=== PATIENT | male | born 1965 | race Caucasian/White ===

== ENCOUNTER 2018-02-25 09:21 | Inpatient (IN) ==
--- NOTE | 2018-02-25 10:06 | History & Physical Report ---
<Candy Medrano - Last Filed: 02/25/18 10:02> Date of Encounter: 02/25/18 Time of Encounter: 09:30 24 Hour HP Update - Instructions Instructions: If the History and Physical is less than 30 days old and was completed prior to A.M. admission and or procedure and has NOT been updated on calendar day of procedure please complete this update prior to performing procedure. - Update Patient reports changes in Medical Condition: No Changes in examination, assessment, or condition: No Changes in Medication: No Preop tests/diagnostics Reviewed: Yes - Attending Attestation Please refer to full H&P by Dr. Lonny Hale on 01/25/18. Direct admission for Rythmol initiation d/t symptomatic atrial fibrillation. Has been anticoagulated on Eliquis 5 mg BID; denies missed doses in the past 30 + days. Baseline ECG demonstrates atrial fibrillation with controlled rate, 74 BPM. QRS 97 ms, QT/QTc 388,416 ms. Obtain baseline CMP, CBC. Daily ECG's. Anticipate starting Rythmol 150 mg every 8 hours. Will need inpatient monitoring for at least 5 doses. If remains in Afib after 5th dose, will plan for DCCV prior to discharge. Patient agreeable. Mr. Mejias will be discussed and reviewed with Dr. Lonny Hale, changes to be made accordingly. <Lonny Hale - Last Filed: 02/26/18 15:46> Date of Encounter: 02/26/18 - Attending Attestation I have personally performed a face to face evaluation on this patient. I have reviewed and agree with the care plan. History and Exam by me shows:
[2018-02-25] MEDS ORDERED: Naloxone 0.4 MG/ML INJ IVP PRN (10:07)
[2018-02-25 10:25] LABS: Basophils # 0.1 K/mcL (0.0-0.2); Basophils % 0.7 %; Eosinophils # 0.3 K/mcL (0.0-0.6); Eosinophils % 3.7 %; Hematocrit 43.3 % (37.5-50.1); Hemoglobin 14.5 g/dL (12.9-16.9); Immature Granulocytes % 0.3 % (0-4); Lymphocytes # 1.8 K/mcL (0.6-4.6); Lymphocytes % 20.9 %; Mean Corpuscular HGB Conc 33.5 g/dL (31.6-35.5); Mean Corpuscular Hemoglobin 30.2 pg (28.0-33.3); Mean Corpuscular Volume 90.2 fL (83.0-100.0); Mean Platelet Volume 10.4 fL (9.4-12.4); Monocytes # 0.9 K/mcL (0.0-1.3); Monocytes % 10.4 %; Neutrophils # 5.5 K/mcL (1.6-8.9); Platelet Count 230 K/mcL (140-400); Red Cell Distribution Width 12.7 % (11.5-14.5)
[2018-02-25 10:46] LABS: Alanine Aminotransferase 23 Units/L (7-52); Albumin/Globulin Ratio 1.5 (1.1-2.2); Alkaline Phosphatase 86 Units/L (34-104); Aspartate Amino Transferase 18 Units/L (13-39); BUN/Creatinine Ratio 27 (6-26); Bilirubin,Total 0.7 mg/dL (0.3-1.0); Blood Urea Nitrogen 22 mg/dL (6-20); Calcium 8.7 mg/dL (8.6-10.3); Chloride 105 mEq/L (98-107); Globulin 2.6 g/dL (2.4-3.5); Glucose 100 mg/dL (70-105); Osmolality,Calculated 291 (280-300); Potassium 4.1 mEq/L (3.5-5.1); Sodium 139 mEq/L (136-145); Total Protein 6.6 g/dL (6.4-8.9); eGFR For African Americans > 60 (> 60); eGFR For Non-African Americans > 60 (> 60)
[2018-02-25 11:07] LABS: Carbon Dioxide 26 mEq/L (23-29)
[2018-02-25] MEDS: Diltiazem CD (24hr) 120 MG CAPSULE PO SCH (13:55)
[2018-02-25] MEDS: (Umeclidinium Bromide [Incruse Ellipta] 62.5 MCG) IH SCH (13:55)
[2018-02-25] MEDS: Aspirin Enteric Coated 81 MG Tablet PO SCH (13:55)
[2018-02-25] MEDS: Loratadine 10 MG TABLET PO SCH (13:55)
[2018-02-25] MEDS: Fluticasone Propionate Nasal 50 MCG/SPRAY BOTTLE NS SCH (13:55)
[2018-02-25] MEDS: Apixaban 5 MG TABLET PO SCH (20:13)
[2018-02-25] MEDS ORDERED: Acetaminophen 325 MG TABLET PO PRN (21:53)
[2018-02-26] MEDS: Apixaban 5 MG TABLET PO SCH ×2 (08:46→21:55)
[2018-02-26] MEDS: Diltiazem CD (24hr) 120 MG CAPSULE PO SCH (08:46)
[2018-02-26] MEDS: Loratadine 10 MG TABLET PO SCH (08:46)
[2018-02-26] MEDS: Aspirin Enteric Coated 81 MG Tablet PO SCH (08:46)
--- NOTE | 2018-02-26 08:57 | Electrophysiology ProgressNote ---
Date of Encounter: 02/26/18 Time of Encounter: 09:00 Assessment and Plan (1) PAF (paroxysmal atrial fibrillation) Current Visit: Yes Status: Acute Per EP: Directly admitted for proximal atrial fibrillation and antiarrhythmic initiation. Patient is status post 3 doses of Rythmol 150 mg by mouth every 8 hours. 24 hour telemetry reviewed with average heart rate past 12 hours 70, currently remains A. fib in the 70s to 80s with longus cause 2.3 seconds. Remains on beta annelise and calcium channel annelise. Patient anticoagulated with Eliquis. Denies any missed doses the past 30 days and denies any active bleeding or blood loss. Plan for possible DC cardioversion tomorrow if appropriate. No MARYCARMEN warranted. Possible discharge tomorrow. All questions answered. Discussion w patient/family: The assessment and plan as outlined above was discussed with the patient who expressed understanding and agreement. All questions were answered. Thank you for involving us in the care of your patient. Please call with any questions. Subjective Principal diagnosis: Afib Interval history: Patient denies any concerns or complaints overnight. Denies any chest pain, short of breath, palpitations. Denies any bleeding concerns. Reports compliance with anticoagulation for at least the past 30 days. Objective Vital Signs, Last 4 Hours Temp Pulse Resp BP Pulse Ox 02/26/18 07:42 97.6 F 65 18 131/99 97 02/26/18 05:00 98.4 F 64 18 126/92 91 General: Conversant, No Apparent Distress HEENT: Atraumatic, Normocephaly, Mucus Membranes Moist Neck: No JVD, Normal carotid pulses Cardiac: Reg Rate and Rhythm, Normal S1 and S2, No Murmur Lungs: Normal Breath Sounds, No Wheeze, Rales, Rhonchi Neuro: Alert and responsive, No focal deficits noted Abdomen: Soft, Non-Tender Skin: No rashes noted on visualized skin Musculoskeletal: No Chest Wall Tenderness Extremities: No Clubbing, No Cyanosis, No Edema, Normal Pulses Results 02/25/18 10:01 02/25/18 10:01 Lab Results 02/25/18 02/25/18 10:01 10:01 WBC 8.6 Hgb 14.5 Hct 43.3 Plt Count 230 Sodium 139 Potassium 4.1 Chloride 105 Carbon Dioxide 26 BUN 22 H Creatinine 0.83 Glucose 100 Calcium 8.7 Total Bilirubin 0.7 AST 18 ALT 23 Alkaline Phosphatase 86 - EKG Interpretation EKG results cardiology: other (Telemetry reviewed with average heart rate past 12 hours 70, currently A. fib in the 70s to 80s with longest pasue 2.3 seconds) - VTE Reasons for not Prescribing Prophylaxis: Not indicated-Anticoagulated or INR therapeutic Consult Discharge Plan - Plan Referrals: Julius You MD [Primary Care Provider] -
[2018-02-26] MEDS: (Umeclidinium Bromide [Incruse Ellipta] 62.5 MCG) IH SCH ×2 (12:15→14:10)
[2018-02-26] MEDS: Fluticasone Propionate Nasal 50 MCG/SPRAY BOTTLE NS SCH (14:07)
[2018-02-27] MEDS: (Umeclidinium Bromide [Incruse Ellipta] 62.5 MCG) IH SCH (08:56)
[2018-02-27] MEDS: Aspirin Enteric Coated 81 MG Tablet PO SCH (08:56)
[2018-02-27] MEDS: Diltiazem CD (24hr) 120 MG CAPSULE PO SCH (08:56)
[2018-02-27] MEDS: Apixaban 5 MG TABLET PO SCH (08:56)
[2018-02-27] MEDS: Loratadine 10 MG TABLET PO SCH (08:56)
[2018-02-27] MEDS: Fluticasone Propionate Nasal 50 MCG/SPRAY BOTTLE NS SCH (09:00)
--- NOTE | 2018-02-27 10:41 | Event Note ---
Date of Encounter: 02/27/18 Time of Encounter: 10:39 - Cardiology Event Note S/P 6 Rythmol doses, remains in A-Fib. EKGs reviewed--QRS stable. Denies any missed doses of Eliquis in past 30 days. Proceed with DCCV today in attempt to restore SR. No MARYCARMEN warranted. If successful DCCV, anticipate d/c later today.
[2018-02-27] MEDS ORDERED: 0.9 % Sodium Chloride 500 ML IVC ONE (11:54)
[2018-02-27] MEDS: *HR* Midazolam HCl 5 MG/5 ML VIAL IVP PRN ×3 (13:05→13:15)
[2018-02-27] MEDS: *HR* FentaNYL (PF) 100 MCG/2 ML VIAL IVP PRN ×3 (13:05→13:15)
--- NOTE | 2018-02-27 13:54 | Discharge Summary ---
Orders not resulted at time of discharge: Pending orders 02/27/18 09:23 EV cardioversion Routine 02/28/18 06:00 ECG 12 lead ECG [ECG] AM 0600 Date of Encounter: 02/27/18 Time of Encounter: 13:51 - Discharge Diagnosis (1) PAF (paroxysmal atrial fibrillation) Priority: Primary Status: Acute - Hospital Course Hospital course: Mr. Mejias is a 52 year old male directly admitted for proximal atrial fibrillation and antiarrhythmic initiation. Patient is status post 6 doses of Rythmol 150 mg by mouth every 8 hours. Underwent successful DCCV today, currently sinus rhythm, HR 50s, 1st degree AV block. Will continue CCB, but will stop his BB. Patient anticoagulated with Eliquis. EKGs reviewed--QRS remains stable. Tentative D/C home ~5PM today after pt recovers from DCCV/ sedation. Will coordinate outpt follow-up in 2-3 weks. - Time Spent with Patient Total time spent providing and/or coordinating discharge services: Less than 30 minutes - Discharge Medications Prescriptions: Propafenone [Rhythmol] 150 mg PO 0600,1400,2200 #90 tablet Home Medications: Apixaban [Eliquis] 5 mg PO BID 08/17/17 [History] Aspirin [Lo-Dose Aspirin EC] 81 mg PO DAILY 08/17/17 [History] Atorvastatin [Lipitor] 40 mg PO HS 08/17/17 [History] Diltiazem CD (24hr) [Cardizem CD] 120 mg PO DAILY 08/17/17 [History] Escitalopram [Lexapro] 10 mg PO DAILY 08/17/17 [History] Fluticasone Propionate Nasal [Flonase] 1 spr NS DAILY 08/17/17 [History] Loratadine [Claritin] 10 mg PO DAILY 08/17/17 [History] Naproxen [Naprosyn] 500 mg PO BID 08/17/17 [History] Albuterol Sulfate [Ventolin Hfa] 18 gm IH QID PRN 02/25/18 [History] Aspirin/Acetaminophen/Caffeine [Excedrin Migraine Caplet] 2 each PO DAILY PRN [History] Umeclidinium [employer] [Incruse Ellipta] 62.5 mcg IH DAILY 02/25/18 [History] Propafenone [Rhythmol] 150 mg PO 0600,1400,2200 #90 tablet 02/27/18 [Rx] Allergies/Adverse Reactions: 3 Allergy/AdvReac Type Severity Reaction Status Date / Time Amoxicillin [From Augmentin] Allergy Itching Verified 02/25/18 10:42 clavulanic acid Allergy Itching Verified 02/25/18 10:42 [From Augmentin] Hydromorphone [From Dilaudid] Allergy Itching Verified 02/25/18 10:42 Date of admission: 02/25/18 09:21 Primary care physician: Julius You MD Discharging clinician: Agustin Davidson Anticipated date of discharge: 02/27/18 Physical Examination Vital Signs, Last 4 Hours Temp Pulse Resp BP Pulse Ox 02/27/18 12:33 97.7 F 68 12 138/93 95 02/27/18 11:43 97.4 F L 70 18 136/78 95 Vital Signs Temp Pulse Resp BP Pulse Ox 02/27/18 12:33 97.7 F 68 12 138/93 95 02/27/18 11:43 97.4 F L 70 18 136/78 95 02/27/18 07:20 97.4 F L 65 18 131/94 96 02/27/18 05:31 96.6 F L 65 18 132/97 97 02/26/18 21:50 97.7 F 66 20 134/90 93 02/26/18 19:59 93 02/26/18 15:49 97.6 F 62 18 116/84 93 02/26/18 14:04 72 120/54 Intake and Output 02/26/18 02/27/18 02/27/18 23:59 07:59 15:59 Intake Total 590 / 590 0 / 0 Output Total 800 / 800 750 / 750 400 / 400 Balance -210 / -210 -750 / -750 -198 / -198 Intake: IV Fluids 0.9 % Sodium Chloride 500 ML @ 150 mls/hr IVC .Q3H20M ONE Rx#: [id number] Oral 590 / 590 0 / 0 0 / 0 Output: Urine 800 / 800 750 / 750 400 / 400 Other: Meal Dinner Breakfast Percent of Meal Consumed 100% 0% Weight 162.6 kg 358 kg Patient Weight 02/27/18 23:59 Weight 358 kg General: Conversant, No Apparent Distress HEENT: Atraumatic, Normocephaly, Mucus Membranes Moist Neck: No JVD, Normal carotid pulses Cardiac: Reg Rate and Rhythm, Normal S1 and S2, No Murmur Lungs: Normal Breath Sounds, No Wheeze, Rales, Rhonchi Neuro: Alert and responsive, No focal deficits noted Abdomen: Soft, Non-Tender Skin: No rashes noted on visualized skin Musculoskeletal: No Chest Wall Tenderness Extremities: No Clubbing, No Cyanosis, No Edema, Normal Pulses - Patient Status Disposition: Home, Self-Care Condition: Fair Functional capacity at discharge: independent ambulation Overall status at discharge: patient is progressing back to baseline - Discharge Instructions Follow Up With: Julius You MD [Primary Care Provider] - - Diet and Activity Activity: increase activity as tolerated Diet: low fat, low cholesterol - VTE Reasons for not Prescribing Prophylaxis: Not indicated-Anticoagulated or INR therapeutic
[2018-02-27 15:36] VITALS: BP 135/89
--- NOTE | 2018-02-28 16:46 | Electrocardiograph Report ---
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
--- NOTE | 2018-03-01 17:34 | Electrocardiograph Report ---
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
--- NOTE | 2018-03-01 19:17 | Electrocardiograph Report ---
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
--- NOTE | 2018-03-02 16:34 | Electrocardiograph Report ---
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
--- NOTE | 2018-03-02 16:38 | Electrocardiograph Report ---
[address] [address] Test Date: 2018-02-27 Pat Name: Juli Mejias Department: 101 Room: [facility] Gender: Bsa/Aml Compliance Officer: : 1965 Requested By: Lonny Hale Order Number: [id number] Reading MD: Francine Hale Measurements Intervals [place] Rate: 53 P: 46 [place]: 216 QRS: 2 QRSD: 101 T: 10 QT: 431 QTc: 413 Interpretive Statements SINUS BRADYCARDIA WITH FIRST DEGREE AV BLOCK Electronically Signed On 03-02-2018 16:36:54 EDT by Francine Hale
== END 2018-02-27 18:38 | disposition home or self-care (01) | DRG 201 ==
LOC: 2NENU 09:21 → PREOBSVTOIN 10:34
PROVIDERS: ADMIT Internal Medicine Clinical Cardiac Electrophysiology; ATTEND Internal Medicine Clinical Cardiac Electrophysiology